=== PATIENT | male | born 1980 | race Two or more races ===

== ENCOUNTER 2022-05-31 16:52 | Emergency (ER) | payer SELFPAY ==
[~2022-05-31] VITALS: Ht 167.6 cm; Wt 77.5 kg
[2022-05-31] MEDS ORDERED: cloNIDine HCL 0.1 MG TAB PO ONE (17:30)
[2022-05-31] MEDS ORDERED: KETOROLAC TROMETH 60MG/2ML VIAL IM ONE (17:30)
[2022-05-31] MEDS ORDERED: LISI-716 PO (18:41)
[2022-05-31 20:54] VITALS: BP 145/97
== END 2022-05-31 20:59 | disposition home or self-care (01) ==
LOC: ER 16:55
DX: R51.9 Headache, unspecified (principal); I10 Essential (primary) hypertension
CPT/HCPCS: 96372; 99283; J1885

== ENCOUNTER 2022-06-21 02:26 | Emergency (ER) | payer SELFPAY ==
[~2022-06-21] VITALS: Ht 160 cm; Wt 76.0 kg
[~2022-06-21 02:26] MED LIST: LISI-716 PO
[2022-06-21 05:00] LABS: Basophils # (auto) 0.1 10 ^3/uL (0-0.2); Basophils % (auto) 0.5 % (0.0-2.0); Eosinophils # (auto) 0 10 ^3/uL (0-0.8); Eosinophils % (auto) 0.3 % (0.0-7.0); Hematocrit 44.3 % (41.0-53.0); Hemoglobin 15.7 g/dL (13.5-17.5); Lymphocytes # (auto) 2.2 10 ^3/uL (0.4-5.4); Lymphocytes % (auto) 17.1 % (10.0-50.0); Mean Corpuscular Hemoglobin 31.2 pg (28.0-32.0); Mean Corpuscular Hgb Conc. 35.4 g/dL (32.0-36.0); Mean Corpuscular Volume 88.3 fL (80.0-100.0); Monocytes # (auto) 0.8 10 ^3/uL (0-1.3); Monocytes % (auto) 6.1 % (0.0-12.0); Neutrophils # (auto) 9.6 10 ^3/uL (1.6-8.6); Nucleated Red Blood Cells % 0.1 %; Red Blood Cells 5.02 10^6/uL (4.5-5.90); White Blood Cell 12.7 10^3/uL (4.4-10.8)
[2022-06-21 05:06] LABS: Albumin 4.4 g/dL (3.4-5.0); Calcium 8.9 mg/dL (8.5-10.1); Potassium 4.2 mmol/L (3.5-5.1)
[2022-06-21 05:10] LABS: Bilirubin, Total 0.8 mg/dL (0.2-1.0); Total Protein 8.2 g/dL (6.4-8.2)
[2022-06-21 09:16] LABS: Urine Bacteria NONE SEEN /hpf (None Seen); Urine Blood Negative /uL (Negative); Urine Mucus FEW (None Seen); Urine Specific Gravity 1.033 (1.001-1.035); Urine WBC 23 /hpf (0 - 3)
[2022-06-21] MEDS ORDERED: BACDST PO (10:35)
[2022-06-21] MEDS ORDERED: METO-281 PO (10:35)
[2022-06-21] MEDS ORDERED: OLME20TA53 PO (10:35)
[2022-06-21 10:51] VITALS: BP 148/100
== END 2022-06-21 10:53 | disposition home or self-care (01) ==
LOC: ER 02:26
DX: I10 Essential (primary) hypertension (principal); G44.209 Tension-type headache, unspecified, not intractable; K80.50 Calculus of bile duct without cholangitis or cholecystitis without obstruction; K76.0 Fatty (change of) liver, not elsewhere classified; N39.0 Urinary tract infection, site not specified; R07.89 Other chest pain; F17.210 Nicotine dependence, cigarettes, uncomplicated; Z79.899 Other long term (current) drug therapy
CPT/HCPCS: 36415; 71045; 76705; 80053; 81001; 83690; 84484; 85025; 93005